=== PATIENT | male | born 1950 | race Caucasian/White ===

== ENCOUNTER → 2018-01-24 | Outpatient (REF) | payer MEDICARE, OTHER | LOC: M LAB REF 12:28 | DX: D03.61 Melanoma in situ of right upper limb, including shoulder (principal) | CPT/HCPCS: 88305 ==

== ENCOUNTER → 2018-04-01 | Outpatient (REF) | payer MEDICARE, OTHER | LOC: M LAB REF 08:30 | DX: D22.5 Melanocytic nevi of trunk (principal); C44.519 Basal cell carcinoma of skin of other part of trunk | CPT/HCPCS: 88305 ==

== ENCOUNTER → 2018-08-08 | Outpatient (REF) | payer MEDICARE, OTHER | LOC: M LAB REF 19:16 | PROVIDERS: ATTEND Surgery | DX: D03.61 Melanoma in situ of right upper limb, including shoulder (principal); L81.4 Other melanin hyperpigmentation ==

== ENCOUNTER → 2019-02-26 | Outpatient (REF) | payer MEDICARE, OTHER | LOC: M LAB REF 14:57 | PROVIDERS: ATTEND Surgery | DX: C44.41 Basal cell carcinoma of skin of scalp and neck (principal); C44.519 Basal cell carcinoma of skin of other part of trunk ==

== ENCOUNTER → 2019-03-27 | Outpatient (REF) | payer MEDICARE, OTHER | LOC: M LAB REF 15:47 | PROVIDERS: ATTEND Surgery | DX: D03.61 Melanoma in situ of right upper limb, including shoulder (principal); D48.5 Neoplasm of uncertain behavior of skin ==

== ENCOUNTER → 2019-04-30 | Outpatient (REF) | payer MEDICARE, OTHER | LOC: M LAB REF 12:46 | PROVIDERS: ATTEND Internal Medicine | DX: M10.9 Gout, unspecified (principal) ==

== ENCOUNTER → 2020-12-13 | Outpatient (REF) | payer MEDICARE, OTHER | LOC: M LAB REF 16:35 | PROVIDERS: ATTEND Internal Medicine | DX: E79.0 Hyperuricemia without signs of inflammatory arthritis and tophaceous disease (principal) ==

== ENCOUNTER → 2021-03-23 | Outpatient (REF) | payer MEDICARE, OTHER ==
[2021-03-23 17:30] LABS: TOTAL PROTEIN 7.1 GM/DL (6.4-8.2)
[2021-03-23 17:38] LABS: VITAMIN B12 LEVEL 545 PG/ML (247-911)
[2021-03-24 14:03] LABS: ALBUMIN 4.71 GM/DL (3.29-5.55); ALBUMIN % 66.4 % (55.8-66.1); ALPHA-1-GLOBULIN % 3.8 % (2.9-4.9); ALPHA-1-GLOBULINS 0.27 GM/DL (0.17-0.41); ALPHA-2-GLOBULINS 0.73 GM/DL (0.42-0.99); ALPHA-2-GLOBULINS % 10.3 % (7.1-11.8); BETA-1-GLOBULINS 0.32 GM/DL (0.28-0.60); BETA-1-GLOBULINS % 4.5 % (4.7-7.2); BETA-2-GLOBULINS 0.23 GM/DL (0.19-0.55); BETA-2-GLOBULINS % 3.2 % (3.2-6.5); GAMMA GLOBULIN % 11.8 % (11.1-18.8); GAMMA GLOBULINS 0.84 GM/DL (0.65-1.58)
[2021-03-24 14:12] LABS: IMMUNOTYPING SERUM IGG ABNORMAL (NORMAL); IMMUNOTYPING SERUM KAPPA ABNORMAL (NORMAL)
[2021-03-25 17:07] LABS: FREE KAPPA LIGHT CHAINS SERUM 52.4 mg/L (3.3-19.4); FREE LAMBDA LIGHT CHAINS SERUM 9.2 mg/L (5.7-26.3); KAPPA/LAMBDA RATIO SERUM 5.7 (0.26-1.65)
== END ==
LOC: M LAB REF 16:33
PROVIDERS: ATTEND Internal Medicine
DX: G60.9 Hereditary and idiopathic neuropathy, unspecified (principal)

== ENCOUNTER → 2022-06-19 | Outpatient (REF) | payer MEDICARE, OTHER ==
[~2022-06-19] MED LIST: ALLO300T2; AMLO1TAB24; ATOR1TAB21; GABA-1171; HYDR12CA; LISI40TA4
== END ==
LOC: M LAB REF 16:26
PROVIDERS: ATTEND Internal Medicine
DX: E79.0 Hyperuricemia without signs of inflammatory arthritis and tophaceous disease (principal)

== ENCOUNTER → 2022-12-20 | Outpatient (CLI) | payer MEDICARE, OTHER | LOC: M WUC 10:21 | PROVIDERS: ATTEND Internal Medicine | DX: M25.551 Pain in right hip (principal) ==

== ENCOUNTER → 2024-03-31 | Outpatient (CLI) | payer MEDICARE, OTHER ==
[~2024-03-31] MED LIST changes: +FLOM0.4C39 PO
== END ==
LOC: M LAB 09:28
PROVIDERS: ATTEND Student in an Organized Health Care Education/Training Program
DX: R21 Rash and other nonspecific skin eruption (principal)

== ENCOUNTER → 2025-06-01 | Outpatient (REF) | payer MEDICARE, OTHER ==
[~2025-06-01] MED LIST changes: -FLOM0.4C39 PO; +HYDR12.510; -HYDR12CA; +LISI40TA10; -LISI40TA4; +SPIR-10; +TAMS-18 PO
[2025-06-01 10:29] LABS: BASO # 0.0 10^3/uL (0.0-0.2); BASO % 0.5 % (0.0-1.0); EOS # 0.1 10^3/uL (0.0-0.5); EOS % 0.9 % (0.0-3.0); LYMPH # 1.3 10^3/uL (1.5-5.0); LYMPH % 24.1 % (24.0-44.0); MONO # 0.6 10^3/uL (0.0-0.8); MONO % 11.7 % (2.0-8.0); NEUTROPHILS # 3.4 10^3/uL (1.5-8.5); NEUTROPHILS % 62.4 % (36.0-66.0); PLATELET COUNT, AUTOMATED 202 10^3/uL (150-450)
[2025-06-01 10:56] LABS: ALT/SGPT 19.0 U/L (7.0-40); AST/SGOT 18.0 U/L (<34); CALCIUM LEVEL 9.8 MG/DL (8.3-10.6); CARBON DIOXIDE LEVEL 27.0 MMOL/L (20-31); CHLORIDE LEVEL 104.0 MMOL/L (98-107); CHOLESTEROL LEVEL 145.0 MG/DL (<200); CHOLESTEROL RISK RATIO 2.68 (<5); CREATININE FOR GFR 1.0 MG/DL (0.70-1.30); GLOMERULAR FILTRATION RATE 78.5 (>42); LDL CHOLESTEROL 73.3 MG/DL (<100); MAGNESIUM LEVEL 2.1 MG/DL (1.8-2.4); NON-HDL-C 90.9 MG/DL; POTASSIUM SERUM 4.6 MMOL/L (3.5-5.1); SODIUM LEVEL 142.0 MMOL/L (136-145); TRIGLYCERIDES LEVEL 88.0 MG/DL (<150)
== END ==
LOC: M LAB REF 10:03
PROVIDERS: ATTEND Internal Medicine
DX: I11.0 Hypertensive heart disease with heart failure (principal); E78.5 Hyperlipidemia, unspecified; I50.9 Heart failure, unspecified

== ENCOUNTER → 2025-06-29 | Outpatient (CLI) | payer MEDICARE, OTHER | LOC: M PLARAD 09:30 | PROVIDERS: ATTEND Student in an Organized Health Care Education/Training Program | DX: C43.8 Malignant melanoma of overlapping sites of skin (principal) | CPT/HCPCS: 78816; A9552 ==